=== PATIENT | female | born 2000 ===

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

== ENCOUNTER 2019-10-27 21:44 | Inpatient (IN) ==
[2019-10-27 22:40] LABS: Apearance,Urine CLEAR (Clear); Bilirubin,Urine Negative (Negative); Blood, Urine Negative (Negative); Glucose,Urine (UA) Negative (Negative); Ketones,Urine Negative (Negative); Mucus,Urine Occasional /LPF (Occasional); Nitrite,Urine Negative (Negative); Protein,Urine Negative; RBC,Urine <1 /HPF (0-4); Squamous Epithelial Cell,Urine Occasional /HPF (0-10); Urine Color Yellow (Yellow); Urine Specific Gravity 1.021 (1.001-1.035); WBC,Urine 1 /HPF (0-6)
[2019-10-27] MEDS: LACTATED RINGERS 1,000 ML IV SCH (22:56)
[2019-10-28] MEDS: LACTATED RINGERS 1,000 ML IV SCH (03:37)
[2019-10-28] MEDS ORDERED: ceFAZolin 2,000 MG in PREMIX 1 EACH IV ONE (06:15)
[2019-10-28] MEDS ORDERED: FAMOTIDINE 20 MG/2 ML VIAL IV ONE (06:15)
[2019-10-28] MEDS ORDERED: CITRIC ACID/SODIUM CITRATE 30 ML UDCUP PO ONE (06:15)
[2019-10-28 06:44] LABS: Basophils % 0.2 % (0.0-0.8); Eosinophils # 0.1 10*3/uL (0.0-0.87); Eosinophils % 1.6 % (0.00-10.9); Hematocrit 35.3 VOL% (35.7-47.0); Hemoglobin 11.4 GM/DL (12.0-16.0); Immature Granulocytes % 1.4 %; Immature Granulocytes Absolute 0.12 #; Lymphocytes # 1.8 10*3/uL (1.4-4.0); Lymphocytes % 20.3 % (21.3-54.2); Mean Corpuscular HGB Conc 32.3 GM/DL (32-36); Mean Corpuscular Volume 86.1 FL (87-102); Mean Platelet Volume 11.8 FL (9.6-12.0); Monocytes % 9.7 % (1.7-12.7); Neutrophils % 66.8 % (38.7-73.9); Platelet Count 162 T/CUMM (130-400); Red Cell Distribution Width 17.6 % (9.3-17.3); White Blood Count 8.7 T/CUMM (4-12)
[2019-10-28 07:07] LABS: Albumin 2.7 G/DL (3.4-5.0); Bilirubin,Total 0.5 MG/DL (0.2-1.0); Calcium 8.7 MG/DL (8.5-10.1); Osmolality,Calculated 269.8 MOS/KG (273-304); Total Protein 6.7 G/DL (6.4-8.3)
[2019-10-28] MEDS ORDERED: ROPIVACAINE 0.5% 30 ML VIAL ONE (07:33)
[2019-10-28] MEDS ORDERED: DEXAMETHASONE 4 MG/1 ML VIAL ONE (07:33)
[2019-10-28] MEDS ORDERED: OXYTOCIN 10 UNIT/ML VIAL IM ONE (08:00)
[2019-10-28] MEDS ORDERED: OXYTOCIN/LR 30 UNIT/1,000 ML BAG IV ONE (08:00)
[2019-10-28] MEDS ORDERED: PHENYLEPHRINE 1 MG/10 ML SYRINGE IV ONE (10:26)
[2019-10-28] MEDS ORDERED: fentaNYL 100 MCG/2 ML VIAL ONE (10:27)
[2019-10-28] MEDS ORDERED: MORPHINE 10 MG/10 ML VIAL ONE (10:28)
[2019-10-28] MEDS ORDERED: BUPIVACAINE SPINAL 0.75% 2 ML AMP SPINAL ONE (10:28)
[2019-10-28 10:54] LABS: Apearance,Urine CLEAR (Clear); Bilirubin,Urine Negative (Negative); Blood, Urine Negative (Negative); Glucose,Urine (UA) Negative (Negative); Ketones,Urine 80 mg/dL (Negative); Mucus,Urine Occasional /LPF (Occasional); Nitrite,Urine Negative (Negative); Protein,Urine Negative; RBC,Urine 2 /HPF (0-4); Squamous Epithelial Cell,Urine Occasional /HPF (0-10); Urine Color Yellow (Yellow); Urine Specific Gravity 1.023 (1.001-1.035); WBC,Urine <1 /HPF (0-6)
[2019-10-28] MEDS ORDERED: OXYTOCIN/LR 20 UNIT/1,000 ML BAG IV ONE ×2 (11:45→11:49)
[2019-10-28] MEDS ORDERED: RHO(D) IMMUNE GLOBULIN 300 MCG SYRINGE IM ONE (11:49)
[2019-10-28] MEDS ORDERED: MAGNESIUM HYDROXIDE SUSP 30 ML UDCUP PO PRN (11:49)
[2019-10-28] MEDS ORDERED: ACETAMINOPHEN 325 MG TABLET PO PRN (11:49)
[2019-10-28] MEDS ORDERED: diphenhydrAMINE 50 MG/1 ML VIAL ONE (11:49)
[2019-10-28] MEDS ORDERED: ONDANSETRON 4 MG/2 ML VIAL IV PRN (11:49)
[2019-10-28] MEDS ORDERED: LACTATED RINGERS 1,000 ML IV SCH (12:00)
[2019-10-28] MEDS ORDERED: ceFAZolin 1,000 MG in SYRINGE 1 EACH IV SCH (12:00)
[2019-10-28 16:55] LABS: Basophils % 0.2 % (0.0-0.8); Hematocrit 35.6 VOL% (35.7-47.0); Hemoglobin 11.5 GM/DL (12.0-16.0); Immature Granulocytes % 0.6 %; Immature Granulocytes Absolute 0.08 #; Lymphocytes # 0.7 10*3/uL (1.4-4.0); Lymphocytes % 5.9 % (21.3-54.2); Mean Corpuscular HGB Conc 32.3 GM/DL (32-36); Mean Corpuscular Volume 86.2 FL (87-102); Mean Platelet Volume 12.2 FL (9.6-12.0); Monocytes % 5.2 % (1.7-12.7); Neutrophils % 88.1 % (38.7-73.9); Platelet Count 184 T/CUMM (130-400); Red Blood Count 4.13 MC/CUMM (3.8-5.5); Red Cell Distribution Width 17.1 % (9.3-17.3); White Blood Count 12.4 T/CUMM (4-12)
[2019-10-28] MEDS: ceFAZolin 1,000 MG in SYRINGE 1 EACH IV SCH (17:35)
[2019-10-28] MEDS: DOCUSATE SODIUM 100 MG CAPSULE PO SCH (21:26)
[2019-10-29] MEDS: ceFAZolin 1,000 MG in SYRINGE 1 EACH IV SCH (00:55)
[2019-10-29 06:15] LABS: Basophils % 0.3 % (0.0-0.8); Eosinophils # 0.1 10*3/uL (0.0-0.87); Eosinophils % 0.8 % (0.00-10.9); Hematocrit 31.6 VOL% (35.7-47.0); Hemoglobin 10.3 GM/DL (12.0-16.0); Immature Granulocytes % 0.8 %; Immature Granulocytes Absolute 0.09 #; Lymphocytes # 2.1 10*3/uL (1.4-4.0); Lymphocytes % 19.3 % (21.3-54.2); Mean Corpuscular HGB Conc 32.6 GM/DL (32-36); Mean Corpuscular Volume 85.6 FL (87-102); Neutrophils % 65.8 % (38.7-73.9); Platelet Count 152 T/CUMM (130-400); Red Blood Count 3.69 MC/CUMM (3.8-5.5); Red Cell Distribution Width 16.6 % (9.3-17.3); White Blood Count 10.9 T/CUMM (4-12)
[2019-10-29] MEDS: SIMETHICONE CHEW 80 MG TABLET PO PRN ×2 (08:30→19:42)
[2019-10-29] MEDS: MULTIVITAMIN (PRENATAL) TABLET PO SCH (08:30)
[2019-10-29] MEDS: DOCUSATE SODIUM 100 MG CAPSULE PO SCH ×3 (08:30→23:11)
[2019-10-29] MEDS: MAGNESIUM HYDROXIDE SUSP 30 ML UDCUP PO SCH ×2 (08:30→23:12)
[2019-10-29] MEDS: METOCLOPRAMIDE 10 MG TABLET PO SCH ×3 (08:30→23:12)
[2019-10-29] MEDS: IBUPROFEN 800 MG TABLET PO PRN ×2 (12:00→19:43)
[2019-10-29] MEDS ORDERED: MAGNESIUM CITRATE 300 ML BOTTLE PO ONE (19:31)
[2019-10-30] MEDS: MULTIVITAMIN (PRENATAL) TABLET PO SCH (09:33)
[2019-10-30] MEDS: MAGNESIUM HYDROXIDE SUSP 30 ML UDCUP PO SCH ×2 (09:33→20:32)
[2019-10-30] MEDS: DOCUSATE SODIUM 100 MG CAPSULE PO SCH ×3 (09:33→20:32)
[2019-10-30] MEDS: SIMETHICONE CHEW 80 MG TABLET PO PRN (19:16)
[2019-10-30] MEDS: IBUPROFEN 800 MG TABLET PO PRN (19:16)
[2019-10-31 04:16] VITALS: BP 117/64
[2019-10-31] MEDS: DOCUSATE SODIUM 100 MG CAPSULE PO SCH (08:11)
[2019-10-31] MEDS: IBUPROFEN 800 MG TABLET PO PRN (08:11)
[2019-10-31] MEDS: MULTIVITAMIN (PRENATAL) TABLET PO SCH (08:11)
[2019-10-31] MEDS: MAGNESIUM HYDROXIDE SUSP 30 ML UDCUP PO SCH (10:23)
== END 2019-10-31 10:45 | disposition home or self-care (01) | DRG 540 ==
LOC: N.LDOUT 21:44 → N.LD 21:49 → N.OB 10-28 13:35 → N.LD 10-30 14:24
PROVIDERS: ADMIT Obstetrics & Gynecology; ATTEND Obstetrics & Gynecology
PROC: LDCSECT (ICD-10-PCS; 2019-10-28 09:00)